=== PATIENT | female | born 1935 | race Caucasian/White ===

== ENCOUNTER 2025-01-13 10:18 | Outpatient (AMB) | payer OTHER, SELFPAY ==
[2025-01-13 10:38] VITALS: BP 143/83; PULSE 78; RESP 19; TEMP 35.7; O2SAT 94; BMI 27.3
--- NOTE | 2025-01-13 10:38 | ORTHONT_ITS ---
Vital signs 01/13/25 10:38 Height 1.63 m Height Method Stated Weight 72.178 kg Weight Measurement Method Standing Scale BMI 27.3 BP 143/83 H Blood Pressure Source Automatic Cuff Blood Pressure Location Left Upper Arm Position Sitting Respiration 19 Pulse 78 Pulse Source Monitor Temp 96.2 F L Temp Source Temporal Artery Scan Pulse Oximetry (%) 94 L Oxygen Delivery Method Room Air Med/Allergies Allergies & Medications Allergies adhesive Allergy (Mild, Verified 01/13/25 10:39) unknown Medication Reconciliation bupropion HCl 300 mg 24 hr tablet, extended release 300 mg PO QAM 06/04/18 [History Confirmed 01/13/25] hydrocodone bitartrate 20 mg tablet,crush resist,extended rel. 24hr ([facility]ys[facility] ER) 20 mg PO QDAY 06/04/18 [History Confirmed 01/13/25] propranolol 10 mg tablet 10 mg PO QID 06/04/18 [History Confirmed 01/13/25] gabapentin 600 mg tablet 600 mg PO BID 01/09/22 [History Confirmed 01/13/25] ropinirole 1 mg tablet 2 mg PO HS 01/09/22 [History Confirmed 01/13/25] hydrocodone 7.5 mg-acetaminophen 325 mg tablet 1 tab PO Q6H PRN Pain #0 tabs 01/15/22 [Rx Confirmed 01/13/25] hydrocodone 7.5 mg-acetaminophen 325 mg tablet 1 tab PO Q6H PRN pain (scale score 7-10) #16 tabs 01/15/22 [Rx Confirmed 01/13/25] Exam Exam Patient is in no acute distress and is cooperative with the examination today. Breathing is nonlabored. Patient has a normal mood and affect. Bilateral extremities were evaluated and demonstrates sensation intact to light touch. Palpable pedal pulses are present. No significant edema is present. Bilateral hips were examined. The patient has no pain with log roll of the hips. Internal rotation to 30 degrees and external rotation to 30 degrees is painless. Negative FADIR. Left knee was examined today. The left knee is in varus alignment. Range of motion from 0-115 degrees. Knee is stable to varus and valgus as well as AP translation with <5mm. Patient has a negative McMurrays. There is no pain with patellofemoral compression and no crepitus noted. The knee is tender to palpation medially. Assessment and Plan Problem List (1) Arthritis of left knee: Status: Acute Plan: Veda is a pleasant 89-year-old female with left knee pain and left knee arthritis. She has a long nail in her left hip for intertrochanteric fracture. We discussed total knee replacement in great detail. I would need to make a plan this to see if it is possible to do the knee replacement without hardware removal. We would not want to remove the ramos if we do not have to. I will see her back after her new x-rays are done. I would also like to make a plan her knee replacement to see if we can do the knee replacement without removing the ramos Advanced Care Planning Discussion Advance care planning discussed with:: patient Office Procedures GNS Level of Care Nursing/Assessment Patient Status: Initial/New Patient Nursing Assessment/Reassesment: Medication Reconciliation, Update PMH in EMR and Vital Signs Coordination of Care: Complex Care and Chronic Disease 1-5, Education Complex Pt/Fam, Consent,records obtained, informed consent, 1 Ins Authorization, Lab and Imaging orders, Results/Orders obtained and Staff clarify orders New Patient Charge New Patient Point Assignment: 1124 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 4 ([id number]) MA Intake Visit Data Collection New Patient or Established: New Patient (never been to [facility]) Reason for Visit:: LEFT KNEE PAIN Seen by Clinical Staff ONLY (RN/MA): No Shop Worker Required: No PCP or OBGYN visit in last 3 months: Yes Hx Now: No Do You Feel Safe at Home: Yes Authorities Contacted: N/A Questionairres Past Medical History Past Medical History Have you ever been diagnosed with any of the following: Neurological Problems Seizures: No Peripheral Neuropathy: Yes Cardiology Problems Coronary Artery Disease: Yes Congestive Heart Failure: No Respiratory Problems Chronic Obstructive Pulmonary Disease (COPD): No Genital/Urinary Problems Renal Disease: No Reproductive Problems Previous Pregnancies: Yes Musculoskeletal Problems Fractures: Yes Endocrine Problems Diabetes Mellitus Type 1: No Diabetes Mellitus Type 2: No Hypothyroidism: Yes Psychologic Problems Anxiety: Yes Other Problems Blood Transfusion Reaction: No Anesthesia Reactions: No Surgical History Coronary Artery Bypass Graft: Yes (DOUBLE) Subjective Visit Visit for: new patient and knee (LEFT) Immunization / Flu Flu Vaccine in the Last 12 Months: Yes Flu Vaccine Exclusion Criteria: Already Received History of Present Illness Chief complaint: Left knee pain Date of injury / onset of symptoms: 10-15 YEARS There is a pleasant 89-year-old female with left knee pain. She severe left knee arthritis. She has tried physical therapy, [place], and multiple injections. She has a history of a left hip fracture done 6 years ago. The knee pain is affecting her quite a bit and she is interested in surgery. She also had a right total knee replacement done [address] Dias in [place] Pain Pain level (0-10): 6 Pain duration: ALL DAY Pain location: anterior Pain quality: aching and other (specify) (UNBLANCED) Pain timing: night, increases with activity and stairs Associated signs & symptoms: weakness Ambulatory data Ambulatory device: none Treatments Number of previous injections: 3 Improvement with previous injections: No Improvement with PT: No Improvement with NSAIDS: no Review of Systems Review of Systems: All systems negative unless otherwise noted in HPI.
== END 2025-01-13 11:00 | disposition home or self-care (01) ==
LOC: HODSRG 10:18
PROVIDERS: PCP Internal Medicine; Referring Provider Internal Medicine; Supervising Provider Orthopaedic Surgery Adult Reconstructive Orthopaedic Surgery; Visit Provider Orthopaedic Surgery Adult Reconstructive Orthopaedic Surgery
DX: M17.12 Unilateral primary osteoarthritis, left knee (principal); M25.562 Pain in left knee; E03.9 Hypothyroidism, unspecified; I25.10 Atherosclerotic heart disease of native coronary artery without angina pectoris; Z96.651 Presence of right artificial knee joint; S72.142D Displaced intertrochanteric fracture of left femur, subsequent encounter for closed fracture with routine healing; X58.XXXD Exposure to other specified factors, subsequent encounter
CPT/HCPCS: 99204; G0463

== ENCOUNTER → 2025-01-18 | Outpatient (CLI) | payer OTHER, SELFPAY ==
--- NOTE | 2025-01-18 15:00 | XR_ITS ---
Examination: Bilateral knees 2 views Right lateral knee left lateral knee 2 views Bilateral axial knees single view Exam date and time: January 18, 2025 1530 hours TECHNIQUE: Bilateral AP knees standing single view, bilateral PA knees standing single view 30 degrees flexion Standing right lateral knee left lateral knee 2 views Bilateral axial knees single view total 5 views Exam date and time: January 18, 2025 1530 hours INDICATIONS: Left knee pain 20 years right knee surgery 13 years ago FINDINGS: Moderate osteopenia Total right knee arthroplasty. Satisfactory alignment No fracture Severe narrowing medial joint space left knee, [id number] Advanced osteoarthritis lateral patellofemoral joints left knee No fracture IMPRESSION: Advanced left knee tricompartment osteoarthritis including severe narrowing medial joint space left knee
--- NOTE | 2025-01-18 15:00 | XR_ITS ---
Examination: Left femur 2 views TECHNIQUE: AP lateral left femur 2 views Exam date and time: January 18, 2025 1542 hours INDICATIONS: Left hip pain 20 years FINDINGS: Healed left hip fracture No acute fracture Advanced left hip osteoarthritis Left hip orthopedic hardware including femoral ramos satisfactory position Advanced osteoarthritis medial patellofemoral joints left knee IMPRESSION: Advanced left hip osteoarthritis Advanced osteoarthritis medial patellofemoral joints left knee
--- NOTE | 2025-01-18 15:00 | XR_ITS ---
Examination: Bilateral hips, AP pelvis, 5 views Technique: AP, lateral views both hips, AP pelvis, 5 views Exam date and time: January 18, 2025 1530 hours INDICATIONS: Left knee pain beginning 20 years ago FINDINGS: Moderate to advanced right hip osteoarthritis Advanced left hip osteoarthritis Old healed left hip fracture No acute hip or pelvic fracture IMPRESSION: Moderate to advanced right hip osteoarthritis Advanced left hip osteoarthritis
== END | disposition home or self-care (01) ==
LOC: CDIM 14:50
PROVIDERS: Referring Provider Orthopaedic Surgery Adult Reconstructive Orthopaedic Surgery; Visit Provider Orthopaedic Surgery Adult Reconstructive Orthopaedic Surgery
DX: M16.0 Bilateral primary osteoarthritis of hip (principal); M17.0 Bilateral primary osteoarthritis of knee; M25.862 Other specified joint disorders, left knee; M25.861 Other specified joint disorders, right knee
CPT/HCPCS: 73523; 73552; 73564

== ENCOUNTER 2025-01-28 10:52 | Outpatient (AMB) | payer OTHER, SELFPAY ==
--- NOTE | 2025-01-28 10:51 | ORTHONT_ITS ---
Med/Allergies Allergies & Medications Allergies adhesive Allergy (Mild, Verified 01/28/25 10:51) unknown Medication Reconciliation bupropion HCl 300 mg 24 hr tablet, extended release 300 mg PO QAM 06/04/18 [History Confirmed 01/28/25] hydrocodone bitartrate 20 mg tablet,crush resist,extended rel. 24hr ([place]ys[facility] ER) 20 mg PO QDAY 06/04/18 [History Confirmed 01/28/25] propranolol 10 mg tablet 10 mg PO QID 06/04/18 [History Confirmed 01/28/25] gabapentin 600 mg tablet 600 mg PO BID 01/09/22 [History Confirmed 01/28/25] ropinirole 1 mg tablet 2 mg PO HS 01/09/22 [History Confirmed 01/28/25] hydrocodone 7.5 mg-acetaminophen 325 mg tablet 1 tab PO Q6H PRN Pain #0 tabs 01/15/22 [Rx Confirmed 01/28/25] hydrocodone 7.5 mg-acetaminophen 325 mg tablet 1 tab PO Q6H PRN pain (scale score 7-10) #16 tabs 01/15/22 [Rx Confirmed 01/28/25] Subjective Visit Visit for: follow up visit, knee and x-rays Immunization / Flu Flu Vaccine in the Last 12 Months: Yes Flu Vaccine Exclusion Criteria: Already Received History of Present Illness Chief complaint: F/U XRAYS TELEMED Veda is an 89-year-old female with severe left knee arthritis. We obtained new x-rays to evaluate the hardware. She does have a femoral ramos her prior intertrochanteric fracture. The knee pain is miserable. Pain Pain level (0-10): 10 Pain duration: ALL DAY Pain location: inside (medial), outside (lateral), anterior and posterior Pain quality: sharp, dull and aching Pain timing: increases with activity Associated signs & symptoms: numbness Ambulatory data Ambulatory device: cane Treatments Improvement with previous injections: Yes Improvement with PT: Yes Improvement with NSAIDS: yes Review of Systems Review of Systems: All systems negative unless otherwise noted in HPI. Assessment and Plan Problem List (1) Arthritis of left knee: Status: Acute Plan: Patient is an 89-year-old female with a left knee pain and a left knee arthritis. We discussed different treatment options. I think we can do a total knee replacement without removing the ramos. This would require a CT scan for both evaluation and for surgery as we cannot do an intramedullary guide. We will see her in person for further discussion. We will need to get a CT scan to see if this is possible without hardware removal Advanced Care Planning Discussion Advance care planning discussed with:: patient Office Procedures GNS Level of Care Nursing/Assessment Patient Status: Established Patient Nursing Assessment/Reassesment: Medication Reconciliation, Update PMH in EMR and Vital Signs Coordination of Care: Complex Care and Chronic Disease 1-5, Education Complex Pt/Fam, Consent,records obtained, informed consent, Results/Orders obtained and Staff clarify orders Established Patient Charge Established Patient Point Assignment: 95 Telehealth Telemed Phone/Video with patient at home & ,[place],UNIVERSITY RELATIONS DIRECTOR: Yes
== END 2025-01-28 11:02 | disposition home or self-care (01) ==
LOC: HODSRG 10:52
PROVIDERS: PCP Internal Medicine; Referring Provider Internal Medicine; Supervising Provider Orthopaedic Surgery Adult Reconstructive Orthopaedic Surgery; Visit Provider Orthopaedic Surgery Adult Reconstructive Orthopaedic Surgery
DX: Z71.2 Person consulting for explanation of examination or test findings (principal); M17.12 Unilateral primary osteoarthritis, left knee; Z96.652 Presence of left artificial knee joint; Z96.7 Presence of other bone and tendon implants
CPT/HCPCS: 99212; G0463

== ENCOUNTER → 2025-02-23 | Outpatient (CLI) | payer OTHER, SELFPAY ==
--- NOTE | 2025-02-23 14:47 | XR_ITS ---
Examination: CT left lower extremity, without contrast. 2-D sagittal reconstructions. 2-D coronal reconstructions. 3-D reconstructions. Date and time of exam:February 23, 2025 1508 hours INDICATIONS: Left knee pain beginning 20 years ago diagnosis primary unilateral osteoarthritis CTDI: vol (mGy):12.8 DLP: (mGycm):951 Technique: Multiple 1.25 mm axial sections of the left lower extremity without intravenous contrast have been obtained. 2-D sagittal and coronal reconstructions have been obtained. 3-D reconstructions have been obtained. Low dose protocols were performed. One or more of the following dose reduction techniques were used; automated exposure control, adjustment of the mA and/or KV according to patient size, use of iterative reconstruction technique. 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
== END | disposition home or self-care (01) ==
PROVIDERS: PCP Orthopaedic Surgery Adult Reconstructive Orthopaedic Surgery; Referring Provider Orthopaedic Surgery Adult Reconstructive Orthopaedic Surgery; Visit Provider Orthopaedic Surgery Adult Reconstructive Orthopaedic Surgery
DX: M17.12 Unilateral primary osteoarthritis, left knee (principal); M16.0 Bilateral primary osteoarthritis of hip
CPT/HCPCS: 73700

== ENCOUNTER 2025-03-01 11:04 | Outpatient (AMB) | payer OTHER, SELFPAY ==
[2025-03-01 11:15] VITALS: BP 144/73; PULSE 66; RESP 18; TEMP 36.1; O2SAT 92; BMI 27.9
--- NOTE | 2025-03-01 11:15 | PD.ORTHCLVIS ---
Vital signs 03/01/25 11:15 Height 1.63 m Height Method Stated Weight 74.162 kg Weight Measurement Method Standing Scale BMI 27.9 BP 144/73 H Blood Pressure Source Automatic Cuff Blood Pressure Location Right Upper Arm Position Sitting Respiration 18 Pulse 66 Pulse Source Monitor Temp 96.9 F Temp Source Temporal Artery Scan Pulse Oximetry (%) 92 L Oxygen Delivery Method Room Air Med/Allergies Allergies & Medications Allergies adhesive Allergy (Mild, Verified 03/01/25 11:16) unknown Medication Reconciliation bupropion HCl 300 mg 24 hr tablet, extended release 300 mg PO QAM 06/04/18 [History Confirmed 03/01/25] hydrocodone bitartrate 20 mg tablet,crush resist,extended rel. 24hr ([facility]ys[facility] ER) 20 mg PO QDAY 06/04/18 [History Confirmed 03/01/25] propranolol 10 mg tablet 10 mg PO QID 06/04/18 [History Confirmed 03/01/25] gabapentin 600 mg tablet 600 mg PO BID 01/09/22 [History Confirmed 03/01/25] ropinirole 1 mg tablet 2 mg PO HS 01/09/22 [History Confirmed 03/01/25] hydrocodone 7.5 mg-acetaminophen 325 mg tablet 1 tab PO Q6H PRN Pain #0 tabs 01/15/22 [Rx Confirmed 03/01/25] hydrocodone 7.5 mg-acetaminophen 325 mg tablet 1 tab PO Q6H PRN pain (scale score 7-10) #16 tabs 01/15/22 [Rx Confirmed 03/01/25] Exam Exam Patient is in no acute distress and is cooperative with the examination today. Breathing is nonlabored. Patient has a normal mood and affect. Bilateral extremities were evaluated and demonstrates sensation intact to light touch. Palpable pedal pulses are present. No significant edema is present. Bilateral hips were examined. The patient has no pain with log roll of the hips. Internal rotation to 30 degrees and external rotation to 30 degrees is painless. Negative FADIR. Left knee was examined today. The left knee is in varus alignment. Range of motion from 0-115 degrees. Knee is stable to varus and valgus as well as AP translation with <5mm. Patient has a negative McMurrays. There is no pain with patellofemoral compression and no crepitus noted. The knee is tender to palpation medially. Left knee x-rays demonstrate complete obliteration of the medial joint space there is a femoral ramos with no distal interlocks Assessment and Plan Problem List (1) Arthritis of left knee: Status: Acute Plan: Patient is an 89-year-old female with a left knee pain and a left knee arthritis. We discussed different treatment options. I think we can do a total knee replacement without removing the ramos. We discussed that she is high at high risk for medical complications at her age as well as infection of fracture. The nature and purpose of the total knee replacement, alternative method(s) of treatment, the material risks involved, and the possibility of complications were fully explained to the patient. The patient does NOT have any of the following contraindications to TKA: - Active infection of the knee joint, OR - Active systemic bacteremia, OR - Active skin infection or open wound at surgical site, OR - Neuropathic arthritis, OR - Severe, rapidly progressive neurological disease, OR - Severe medical condition that makes risks of surgery outweigh the potential benefit The patient was told the most common risks and complications associated with a total knee replacement include, but are not limited to: blood clots in the leg, fatal pulmonary embolism, dislocation of the prosthesis, intraoperative and postoperative fractures of the femur or tibia, infection, failure of the prosthesis or grafting materials, complications from anesthesia, reactions to blood transfusions, postoperative leg length inequality, instability of the knee replacement, nerve damage or injury, vascular injury, delayed wound healing, infection, other injury or even . In addition, there are risks associated with anesthesia given during this operation. Also, the patient was told that after undergoing a total knee replacement there may still be persistent pain or disability. The patient was informed that the success of this operation in part depends upon the mechanical devices which are going to be implanted and that these devices can fail or malfunction, and may need to be repaired or replaced and there are no guarantees as to the longevity of this device or its parts and that it or its parts could fail prematurely. The patient was also notified that during the course of surgery, there may be a need to use bone graft from donors, and that any bone graft used will be carefully screened for communicable diseases, including AIDS, hepatitis, Antonino-Creutzfeldt, or other diseases, but despite the screening procedures, there is a small chance that they could contract one of these diseases. Finally, the patient was asked to follow completely and fully with all advice and recommended treatments, and that recovery and ultimate outcome are affected by their compliance with recommended treatment. We discussed the risks, benefits and treatment alternatives, and the patient is interested in proceeding with surgery. We will try to set this up as expeditiously as possible. Advanced Care Planning Discussion Advance care planning discussed with:: patient Office Procedures GNS Level of Care Nursing/Assessment Patient Status: Established Patient Nursing Assessment/Reassesment: Medication Reconciliation and Update PMH in EMR Coordination of Care: Complex Care and Chronic Disease 1-5, Consent,records obtained, informed consent, Education Simp Pt/Fam, Results/Orders obtained and Staff clarify orders Established Patient Charge Established Patient Point Assignment: 75 Established Patient Point Charge: EP Level 2 (40-75) MA Intake Visit Data Collection New Patient or Established: Established Patient (seen at [facility] within 3 years) Reason for Visit:: LT KNEE CT SCAN RESULT Seen by Clinical Staff ONLY (RN/MA): No Certified Professional Controller Required: No PCP or OBGYN visit in last 3 months: Yes Hx Now: No Do You Feel Safe at Home: Yes Authorities Contacted: N/A Questionairres Past Medical History Past Medical History Have you ever been diagnosed with any of the following: Neurological Problems Seizures: No Peripheral Neuropathy: Yes Cardiology Problems Coronary Artery Disease: Yes Congestive Heart Failure: No Respiratory Problems Chronic Obstructive Pulmonary Disease (COPD): No Smoking: No Smoking Cessation Counseling: No Smoking Exposure: No Genital/Urinary Problems Renal Disease: No Reproductive Problems Previous Pregnancies: Yes Musculoskeletal Problems Fractures: Yes Endocrine Problems Diabetes Mellitus Type 1: No Diabetes Mellitus Type 2: No Hypothyroidism: Yes Psychologic Problems Anxiety: Yes Other Problems Blood Transfusion Reaction: No Anesthesia Reactions: No Surgical History Coronary Artery Bypass Graft: Yes (DOUBLE) Subjective Visit Visit for: follow up visit and knee (LT KNEE ) Immunization / Flu Flu Vaccine in the Last 12 Months: Yes Flu Vaccine Exclusion Criteria: Already Received History of Present Illness Chief complaint: Left knee pain Date of injury / onset of symptoms: 10-15 YEARS There is a pleasant 89-year-old female with left knee pain. She severe left knee arthritis. She has tried physical therapy, [place], and multiple injections. She has a history of a left hip fracture done 6 years ago. The knee pain is affecting her quite a bit and she is interested in surgery. She also had a right total knee replacement done [address] Dias in [place]. Personal History Red flag PMH: none Pain Pain level (0-10): 8 Pain duration: 3-4 YEARS Pain location: anterior Pain quality: burning and tingling Pain timing: night, increases with activity and other (specify) (SITTING ) Associated signs & symptoms: stiffness Ambulatory data Ambulatory device: none Walking distance (minutes): 5 Treatments Number of previous injections: 1 Improvement with previous injections: No Number of Physical Therapy sessions: 1 Improvement with PT: No Improvement with NSAIDS: n/a Review of Systems Review of Systems: All systems negative unless otherwise noted in HPI.
== END 2025-03-01 11:27 | disposition home or self-care (01) ==
LOC: HODSRG 11:04
PROVIDERS: PCP Internal Medicine; Referring Provider Internal Medicine; Supervising Provider Orthopaedic Surgery Adult Reconstructive Orthopaedic Surgery; Visit Provider Orthopaedic Surgery Adult Reconstructive Orthopaedic Surgery
DX: M17.12 Unilateral primary osteoarthritis, left knee (principal); M25.562 Pain in left knee; I25.10 Atherosclerotic heart disease of native coronary artery without angina pectoris
CPT/HCPCS: 99212; G0463

== ENCOUNTER → 2025-03-17 | Outpatient (CLI) | payer OTHER, SELFPAY ==
--- NOTE | 2025-03-17 15:17 | XR_ITS ---
Examination: CT left lower extremity without intravenous contrast, without contrast. 2-D sagittal reconstructions. 2-D coronal reconstructions. 3-D reconstructions. Date and time of exam:March 17, 2025 1552 hours INDICATIONS: Left knee pain 20 years CTDI: vol (mGy):12 DLP: (mGycm):940 Technique: Multiple 1.25 mm axial sections of the left lower extremity without intravenous contrast have been obtained. 2-D sagittal and coronal reconstructions have been obtained. 3-D reconstructions have been obtained. Low dose protocols were performed. One or more of the following dose reduction techniques were used; automated exposure control, adjustment of the mA and/or KV according to patient size, use of iterative reconstruction technique. Findings: Prominent osteopenia Advanced left hip osteoarthritis, [id number] joint narrowing Old healed fracture left hip Advanced left knee tricompartment osteoarthritis with prominent joint space narrowing and subarticular sclerosis osteophyte formation No fracture No patellar dislocation IMPRESSION: Advanced left knee tricompartment osteoarthritis
== END | disposition home or self-care (01) ==
PROVIDERS: PCP Family Medicine; Referring Provider Orthopaedic Surgery Adult Reconstructive Orthopaedic Surgery; Visit Provider Orthopaedic Surgery Adult Reconstructive Orthopaedic Surgery
DX: M17.12 Unilateral primary osteoarthritis, left knee (principal)
CPT/HCPCS: 73700

== ENCOUNTER → 2025-03-22 | Outpatient (CLI) | payer OTHER, SELFPAY ==
[2025-03-22 11:28] LABS: Basophils % (Auto) 1 % (0-2.5); Eosinophils # (Auto) 0.1 Thou/mm3 (0.0-0.5); Eosinophils % (Auto) 3 % (0-10); Hematocrit 36.8 % (36.0-46.0); Hemoglobin 12.3 g/dL (12.0-16.0); Immature Granulocytes % (Auto) 0 % (0-0); Immature Granulocytes Auto 0.01 Thou/mm3 (0.00-0.00); Lymphocytes # (Auto) 1.2 Thou/mm3 (1.0-4.8); Lymphocytes % (Auto) 26 % (10-50); Mean Corpuscular HGB Conc 33.4 g/dl (31.0-37.0); Mean Corpuscular Hemoglobin 31.4 pg (25.0-35.0); Mean Corpuscular Volume 94 fL (80-100); Monocytes # (Auto) 0.4 Thou/mm3 (0.0-0.8); Monocytes % (Auto) 8 % (0-12); Neutrophils # (Auto) 2.9 Thou/mm3 (1.8-7.7); Neutrophils % (Auto) 62 % (37-80); Nucleated Red Blood Cell % 0 /100 WBC (0); Platelet Count 190 Thou/mm3 (140-440); RDW Standard Deviation 46.5 fL (36.4-46.3); Red Blood Count 3.92 Miln/mm3 (4.00-5.20); White Blood Count 4.7 Thou/mm3 (3.6-11.0)
[2025-03-22 11:31] LABS: Partial Thromboplastin Time 24.7 Seconds (22.0-36.0); Prothrombin Time 11.2 Seconds (9.0-12.2)
[2025-03-22 12:16] LABS: Alanine Aminotransferase 9 U/L (10-49); Albumin/Globulin Ratio 1.5 (1.2-2.2); Alkaline Phosphatase 59 U/L (46-116); Anion Gap 3 (7-16); Aspartate Amino Transferase 21 U/L (0-34); BUN/Creatinine Ratio 19 Ratio (12-20); Bilirubin,Total 0.5 mg/dL (0.3-1.2); Blood Urea Nitrogen 23 mg/dL (9-23); Calcium 9.6 mg/dL (8.3-10.6); Calcium (Corrected) 9.6 mg/dL (8.5-10.1); Carbon Dioxide 29.9 mMol/L (20.0-31.0); Cardiac Risk Estimate 3.9 RATIO (3.7-5.6); Chloride 110 mMol/L (98-107); Cholesterol 202 mg/dL (132-200); Creatinine (Component) 1.2 mg/dL (0.6-1.3); Globulin 2.7 gm/dL (2.3-3.5); Glucose 85 mg/dL (74-106); HDL Cholesterol 52 mg/dL (40-60); LDL Cholesterol,Calculated 133 mg/dL (0-130); Osmolality,Calculated 287 (275-295); Potassium 4.4 mMol/L (3.4-5.1); Sodium 143 mMol/L (136-145); Total Protein 6.7 gm/dL (5.7-8.2); Triglycerides 86 mg/dL (30-150); eGFR 44 See Note
== END | disposition home or self-care (01) ==
PROVIDERS: PCP Family Medicine; Referring Provider Registered Nurse; Visit Provider Registered Nurse
DX: Z01.818 Encounter for other preprocedural examination (principal); E78.2 Mixed hyperlipidemia
CPT/HCPCS: 36415; 80053; 80061; 85025; 85610; 85730

== ENCOUNTER 2025-05-17 08:38 | Outpatient (AMB) | payer OTHER, SELFPAY ==
[2025-05-17 09:01] VITALS: BP 102/68; PULSE 63; RESP 18; TEMP 36.4; O2SAT 92; BMI 27.0
--- NOTE | 2025-05-17 09:01 | ORTHONT_ITS ---
Vital signs 05/17/25 09:01 Height 1.63 m Height Method Stated Weight 71.781 kg Weight Measurement Method Standing Scale BMI 27.0 BP 102/68 Blood Pressure Source Automatic Cuff Blood Pressure Location Left Upper Arm Position Sitting Respiration 18 Pulse 63 Pulse Source Monitor Temp 97.5 F Temp Source Temporal Artery Scan Pulse Oximetry (%) 92 L Oxygen Delivery Method Room Air Med/Allergies Allergies & Medications Allergies adhesive Allergy (Mild, Verified 05/17/25 09:02) unknown Medication Reconciliation gabapentin 600 mg tablet 600 mg PO BID 01/09/22 [History Confirmed 05/17/25] alendronate 70 mg tablet 70 mg PO QWEEK 05/17/25 [History Confirmed 05/17/25] aspirin 81 mg tablet 81 mg PO QDAY 05/17/25 [History Confirmed 05/17/25] bupropion HCl 300 mg 24 hr tablet, extended release 300 mg PO QAM 05/17/25 [History Confirmed 05/17/25] diphenhydramine HCl 25 mg tablet (Benadryl Allergy) 25 mg PO QHS PRN 05/17/25 [History Confirmed 05/17/25] hydrocodone 10 mg-acetaminophen 325 mg/15 mL oral solution 15 ml PO BID PRN 05/17/25 [History Confirmed 05/17/25] hydrocodone bitartrate 20 mg tablet,crush resist,extended rel. 24hr (Hysingla ER) 20 mg PO Q24H 05/17/25 [History Confirmed 05/17/25] ibuprofen 200 mg capsule 200 mg PO Q6H PRN 05/17/25 [History Confirmed 05/17/25] inulin 1.7 gram chewable tablet (Fiber Gummies) g PO 05/17/25 [History Confirmed 05/17/25] multivitamin 1 tab PO QAM 05/17/25 [History Confirmed 05/17/25] ropinirole 1 mg tablet 1 mg PO QDAY 05/17/25 [History Confirmed 05/17/25] rosuvastatin 5 mg tablet 5 mg PO QDAY 05/17/25 [History Confirmed 05/17/25] tizanidine 4 mg capsule 4 mg PO QHS PRN 05/17/25 [History Confirmed 05/17/25] tizanidine 4 mg capsule (Zanaflex) 4 mg PO QHS PRN 05/17/25 [History Confirmed 05/17/25] Exam Exam Patient is in no acute distress and is cooperative with the examination today. Breathing is nonlabored. Patient has a normal mood and affect. Bilateral extremities were evaluated and demonstrates sensation intact to light touch. Palpable pedal pulses are present. No significant edema is present. Bilateral hips were examined. The patient has no pain with log roll of the hips. Internal rotation to 30 degrees and external rotation to 30 degrees is painless. Negative FADIR. Left knee was examined today. The left knee is in varus alignment. Range of motion from 0-115 degrees. Knee is stable to varus and valgus as well as AP translation with <5mm. Patient has a negative McMurrays. There is no pain with patellofemoral compression and no crepitus noted. The knee is tender to palpation medially. Left knee x-rays demonstrate complete obliteration of the medial joint space there is a femoral ramos with no distal interlocks Assessment and Plan Problem List (1) Arthritis of left knee: Status: Acute Plan: Patient is an 89-year-old female with a left knee pain and a left knee arthritis. We discussed different treatment options. I think we can do a total knee replacement without removing the ramos. We discussed that she is high at high risk for medical complications at her age as well as infection. I also discussed with her that she is very likely to have continued pain after surgery as she has significant [id number]-[id number] hip arthritis as well with the prior femoral ramos. She is on a lot of pain medications we honestly recommend that she wean down to multiple. She reports that she cannot do this. I discussed with her that there is a high possibility she is can have uncontrolled pain and that I would have her pain management doctor and avoid pain medications as she is on more pain medications that I am comfortable with prescribing. The nature and purpose of the total knee replacement, alternative method(s) of treatment, the material risks involved, and the possibility of complications were fully explained to the patient. The patient does NOT have any of the following contraindications to TKA: - Active infection of the knee joint, OR - Active systemic bacteremia, OR - Active skin infection or open wound at surgical site, OR - Neuropathic arthritis, OR - Severe, rapidly progressive neurological disease, OR - Severe medical condition that makes risks of surgery outweigh the potential benefit The patient was told the most common risks and complications associated with a total knee replacement include, but are not limited to: blood clots in the leg, fatal pulmonary embolism, dislocation of the prosthesis, intraoperative and postoperative fractures of the femur or tibia, infection, failure of the prosthesis or grafting materials, complications from anesthesia, reactions to b lood transfusions, postoperative leg length inequality, instability of the knee replacement, nerve damage or injury, vascular injury, delayed wound healing, infection, other injury or even . In addition, there are risks associated with anesthesia given during this operation. Also, the patient was told that after undergoing a total knee replacement there may still be persistent pain or disability. The patient was informed that the success of this operation in part depends upon the mechanical devices which are going to be implanted and that these devices can fail or malfunction, and may need to be repaired or replaced and there are no guarantees as to the longevity of this device or its parts and that it or its parts could fail prematurely. The patient was also notified that during the course of surgery, there may be a need to use bone graft from donors, and that any bone graft used will be carefully screened for communicable diseases, including AIDS, hepatitis, Antonino-Creutzfeldt, or other diseases, but despite the screening procedures, there is a small chance that they could contract one of these diseases. Finally, the patient was asked to follow completely and fully with all advice and recommended treatments, and that recovery and ultimate outcome are affected by their compliance with recommended treatment. We discussed the risks, benefits and treatment alternatives, and the patient is interested in proceeding with surgery. We will try to set this up as expeditiously as possible. Advanced Care Planning Discussion Advance care planning discussed with:: patient Office Procedures GNS Level of Care Nursing/Assessment Patient Status: Established Patient Nursing Assessment/Reassesment: Medication Reconciliation, Update PMH in EMR and Vital Signs Coordination of Care: Complex Care and Chronic Disease 1-5, Education Complex Pt/Fam, Consent,records obtained, informed consent, Results/Orders obtained and Staff clarify orders Established Patient Charge Established Patient Point Assignment: 95 Established Patient Point Charge: EP Level 3 (80-115) MA Intake Visit Data Collection New Patient or Established: Established Patient (seen at [facility] within 3 years) Reason for Visit:: PRE OP L TKA Seen by Clinical Staff ONLY (RN/MA): No PCP or OBGYN visit in last 3 months: Yes Hx Now: No Do You Feel Safe at Home: Yes Authorities Contacted: N/A Questionairres Past Medical History Past Medical History Have you ever been diagnosed with any of the following: Neurological Problems Seizures: No Peripheral Neuropathy: Yes Cardiology Problems Coronary Artery Disease: Yes Congestive Heart Failure: No Respiratory Problems Chronic Obstructive Pulmonary Disease (COPD): No Smoking: No Smoking Cessation Counseling: No Smoking Exposure: No Genital/Urinary Problems Renal Disease: No Reproductive Problems Previous Pregnancies: Yes Musculoskeletal Problems Fractures: Yes Endocrine Problems Diabetes Mellitus Type 1: No Diabetes Mellitus Type 2: No Hypothyroidism: Yes Psychologic Problems Anxiety: Yes Other Problems Blood Transfusion Reaction: No Anesthesia Reactions: No Surgical History Coronary Artery Bypass Graft: Yes (DOUBLE) Subjective Visit Visit for: follow up visit and knee Immunization / Flu Flu Vaccine in the Last 12 Months: No Flu Vaccine Exclusion Criteria: No Exclusion Criteria History of Present Illness Chief complaint: Left knee pain Date of injury / onset of symptoms: 10-15 YEARS There is a pleasant 89-year-old female with left knee pain. She severe left knee arthritis. She has tried physical therapy, [facility], and multiple injections. She has a history of a left hip fracture done 6 years ago. The knee pain is affecting her quite a bit and she is interested in surgery. She also had a right total knee replacement done [address] Dias in [place]. She is on a very high amount of pain medicine patient's. I discussed with her That her pain management doctor would likely have to take care of this as she is an extremely high dose. I also discussed with her that there is a chance that her pain could be controlled after surgery given the amount of pain medication she is on Personal History Red flag PMH: none Pain Pain level (0-10): 3 Pain duration: ON AND OFF Pain location: inside (medial), outside (lateral), anterior and posterior Pain quality: sharp, dull and aching Pain timing: night, increases with activity and stairs Associated signs & symptoms: stiffness Ambulatory data Ambulatory device: cane Walking distance (minutes): 5 Treatments Number of previous injections: 1 Improvement with previous injections: No Number of Physical Therapy sessions: 1 Improvement with PT: No Improvement with NSAIDS: no Review of Systems Review of Systems: All systems negative unless otherwise noted in HPI.
== END 2025-05-17 09:20 | disposition home or self-care (01) ==
LOC: HODSRG 08:38
PROVIDERS: PCP Family Medicine; Referring Provider Family Medicine; Supervising Provider Orthopaedic Surgery Adult Reconstructive Orthopaedic Surgery; Visit Provider Orthopaedic Surgery Adult Reconstructive Orthopaedic Surgery
DX: M17.12 Unilateral primary osteoarthritis, left knee (principal); M25.562 Pain in left knee; I25.10 Atherosclerotic heart disease of native coronary artery without angina pectoris; E03.9 Hypothyroidism, unspecified; Z95.1 Presence of aortocoronary bypass graft
CPT/HCPCS: 99213; G0463

== ENCOUNTER 2025-06-08 07:05 | Day surgery (SDC) | payer OTHER, SELFPAY ==
--- NOTE | 2025-06-06 06:00 | EKG_ITS ---
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
[2025-06-06 10:15] VITALS: BMI 29.7
[2025-06-06 11:24] LABS: Basophils # (Auto) 0.0 Thou/mm3 (0.0-0.2); Basophils % (Auto) 1 % (0-2.5); Eosinophils # (Auto) 0.1 Thou/mm3 (0.0-0.5); Eosinophils % (Auto) 2 % (0-10); Hematocrit 36.3 % (36.0-46.0); Hemoglobin 11.5 g/dL (12.0-16.0); Immature Granulocytes Auto 0.02 Thou/mm3 (0.00-0.00); Lymphocytes # (Auto) 1.3 Thou/mm3 (1.0-4.8); Lymphocytes % (Auto) 20 % (10-50); Mean Corpuscular HGB Conc 31.7 g/dl (31.0-37.0); Mean Corpuscular Hemoglobin 31.5 pg (25.0-35.0); Mean Corpuscular Volume 100 fL (80-100); Monocytes # (Auto) 0.6 Thou/mm3 (0.0-0.8); Monocytes % (Auto) 10 % (0-12); Neutrophils # (Auto) 4.3 Thou/mm3 (1.8-7.7); Neutrophils % (Auto) 68 % (37-80); Nucleated Red Blood Cell # 0.00 Thou/mm3 (0.00-0.00); Nucleated Red Blood Cell % 0 /100 WBC (0); Platelet Count 190 Thou/mm3 (140-440); RDW Standard Deviation 51.0 fL (36.4-46.3); Red Blood Count 3.65 Miln/mm3 (4.00-5.20); White Blood Count 6.4 Thou/mm3 (3.6-11.0)
[2025-06-06 11:30] LABS: Alanine Aminotransferase 23 U/L (10-49); Albumin, Serum 4.0 gm/dL (3.4-4.8); Albumin/Globulin Ratio 1.5 (1.2-2.2); Alkaline Phosphatase 67 U/L (46-116); Anion Gap 5 (7-16); Aspartate Amino Transferase 35 U/L (0-34); BUN/Creatinine Ratio 15 Ratio (12-20); Bilirubin,Total 0.3 mg/dL (0.3-1.2); Blood Urea Nitrogen 15 mg/dL (9-23); Calcium 8.8 mg/dL (8.3-10.6); Calcium (Corrected) 8.8 mg/dL (8.5-10.1); Carbon Dioxide 31.7 mMol/L (20.0-31.0); Chloride 109 mMol/L (98-107); Creatinine (Component) 1.0 mg/dL (0.6-1.3); Estimated Creatinine Clearance 37.3 mL/min (>60); Globulin 2.6 gm/dL (2.3-3.5); Glucose 108 mg/dL (74-106); Osmolality,Calculated 292 (275-295); Potassium 4.5 mMol/L (3.4-5.1); Sodium 146 mMol/L (136-145); Total Protein 6.6 gm/dL (5.7-8.2); eGFR 55 See Note
[2025-06-06 11:31] LABS: INR 1.0 (0.9-1.3); Partial Thromboplastin Time 25.7 Seconds (22.0-36.0); Prothrombin Time 10.6 Seconds (9.0-12.2)
--- NOTE | 2025-06-06 12:52 | SUR.PREOP ---
Cardiac records reviewed with Dr Zuñiga.
[2025-06-08] VITALS (17 sets, daily range): BP systolic 104–151; BP diastolic 51–72; PULSE 55–90; RESP 12–20; TEMP 36.2–36.9; O2SAT 95–100; BMI 27.6
[2025-06-08] MEDS: ACETAMINOPHEN 325 MG TABLET 650 MG PO (08:00)
[2025-06-08] MEDS: PREGABALIN 75 MG CAPSULE PO (08:01)
[2025-06-08] MEDS: MELOXICAM 7.5 MG TABLET PO (08:01)
--- NOTE | 2025-06-08 09:00 | CHAP ---
Patient was with family members. I gave words of encouragement and a prayer.
--- NOTE | 2025-06-08 12:06 | PD.SUROPNT ---
Date of Procedure 06/08/25 Pre Op Diagnosis left knee osteoarthritis Post Op Diagnosis left knee osteoarthritis Findings full thickness cartilage loss and osteophytes Procedure Description Indication: The patient is a 89 year old who has a long history of left knee pain. X-rays show degenerative arthritis involving the knee. Over the past several years the patient has had increasing pain, progressive limitation in function. He has failed conservative measures including activity modification, physical therapy, injections, anti-inflammatories, and assistive devices. After a lengthy discussion of the risks and benefits, the patient presents now for total knee replacement. The nature and purpose of the total knee replacement, alternative method(s) of treatment, the material risks involved, and the possibility of complications were fully explained to the patient. The patient was told the most common risks and complications associated with a total knee replacement include, but are not limited to blood clots in the leg, fatal pulmonary embolism, dislocation of the prosthesis, intraoperative and postoperative fractures of the femur or tibia, infection, failure of the prosthesis or grafting materials, complications from anesthesia, reactions to blood transfusions, postoperative leg length inequality, instability of the knee replacement, nerve damage or injury, vascular injury, delayed wound healing, infections, other injury or even . In addition, there are risks associated with anesthesia given during this operation, temporary or permanent numbness on the skin lateral to the incision can be a complication unique to total knee surgery, and kneeling can be painful after knee replacement surgery. Also, the patient was told that after undergoing a total knee replacement there may still be pain or disability. We discussed with the patient that we will be using a robot-assisted technology. We discussed that there is a possibility of converting to manual instrumentation. The patient was informed that the success of this operation in part depends upon the mechanical devices which are going to be implanted and that these devices can fail or malfunction, and may need to be repaired or replaced and there are no guarantees as to the longevity of this device or its part and that it or its parts could fail prematurely. Finally, the patient was asked to follow completely and fully with all advice and recommended treatments, and that recovery and ultimate outcome are affected by their compliance with recommended treatment. Surgical technique: Patient was marked and consented in the pre-operative area. The patient was brought to the operating room and placed on the operating table in a supine position. Prior to positioning, a timeout procedure was performed between the surgeon, the anesthesiologist, and the nursing staff where the patient and the operative side were identified and confirmed. After adequate general anesthetic was obtained, the left lower extremity was prepped and draped in the usual sterile fashion. A weight based dose of Cefazolin were administered within 1 hour prior to incision. The robot was preregistered and calirated before the incision. The extremity was exsanguinated with an esmarch badge and tourniquet inflated to 250mmHg. A midline incision was made. A median parapatellar arthrotomy was made. The patella was subluxed laterally. A medial release was performed to expose the medial tibia. His femoral and tibial pins were placed through an intra incisional manner for both cases. Every effort was made to ensure that the distalmost aspect of the pin was hung in the second cortex. The arrays were then tightened several times to ensure that it was fixed for the remainder of the case. Both femoral and tibial checkpoints were then placed. We then went through the registration process of the bone. We then assessed the knee deformity and attempted to correct it. We also used the robot to aid in judging laxity in both extension and flexion. Final based on laxity and alignment we changed the preoperative assessment to obtain proper proper implant positioning and to correct deformity. Attention was then placed to the tibia. We made a tibial cut using the robot ensuring that both the MCL and the patella tendon were protected with retractors. We then went to the femur and made the posterior cut followed by the anterior cut and the anterior chamfer. The bone was then removed and we made a distal femur cut and a posterior chamfer cut. We verified all cuts. A trial reduction was performed with a size 5 femoral component and a size 5 keeled tibial component. The patella was cut and sized to a 33. The patella tracked centrally, and no lateral retinacular release was necessary. The trial implants were removed. The arrays, pins, and checkpoints were all removed. We performed a verification that all pins were removed. The cut bone surfaces were lavaged. A size 5 left femoral component, a size 5 keeled tibial component, and a size [33] patella were cemented into position with palacos. A triAl liner was placed The knee was felt to be well balanced in the sagittal and coronal plane. once the cement dried the final 5x10 mm cruciate-substituting articular insert was impacted into the tibial tray. The knee was brought out to full extension, flexed up to 120 degrees. It was stable to varus and valgus stress and appropriately balanced in flexion and extension. The wounds were copiously irrigated following deflation of tourniquet. The medial retinaculum was reapproximated with #1 vicryl and quill. The subcutaneous tissues were closed with 0 and 2-0 interrupted Vicryl. The skin was closed with 3-0 Monofilament V loc suture. A sterile dressing was applied. The patient was transferred to a bed and brought to recovery in stable condition. The patient tolerated the procedure well. There were no intraoperative complications. Sponge and needle counts were correct times 2. As the attending surgeon, I attest I was present and performed the entire operation. Grafts/Implants Size 5 CR Femur Size 5 Tibia 10mm poly CS 33mm patella 2 bags palacos Anesthesia spinal Implants buddy Pathology / specimen None Pathology comment: none Estimated Blood Loss 150 Condition Stable Disposition same day Surgeon Martin Siu MD Surgical Staff Operation Date: 06/08/25 10:30 Case Staff CUSTOMER ACCOUNT ADMINISTRATOR: Kareem Clifton RNmanager quality: Erika Jones
--- NOTE | 2025-06-08 12:10 | XR_ITS ---
Examination: AP lateral knee 2 views TECHNIQUE: AP portable supine lateral left knee 2 views Date and time: June 08, 2025 1233 hours INDICATIONS: Status post left knee arthroplasty FINDINGS: Total left knee arthroplasty. Satisfactory alignment No fracture IMPRESSION: Total left knee arthroplasty with satisfactory alignment
--- NOTE | 2025-06-08 12:17 | SUR.PHASEI ---
1217 Patient arrived to recovery resting comfortably in [facility] on oxygen 6L via oxy mask, drowsy and talking with staff, breathing unlabored, vital signs stable, denies pain, dressing intact to left knee; prieno, telfa, abd, webril, sowmya wrap, no bleeding noted, bilateral dorsalis pedis pulses present when palpated, patient has good circulation to left lower extremity; skin color normal for patient and warm to touch, post spinal anesthesia assessment patient has dermatome sensation at L4-mid lower left extremity, report received from Kareem CALDERON and Katerin WAGONER
--- NOTE | 2025-06-08 12:32 | SUR.PHASEI ---
1232 verbal order read-back received from Kareem CALDERON for Tylenol 1000mg via IV for pain to be given at 1300 and Oxycodone IR 5mg oral tab for pain scale 4-6 as needed for pain, will enter order into EMR and administer per hermes garcia
--- NOTE | 2025-06-08 12:42 | SUR.PHASEI ---
1242 XRAY complete per MD order
--- NOTE | 2025-06-08 12:47 | SUR.PHASEI ---
1247 Post spinal anesthesia assessment complete patient has dermatome sensation at S2 perineum
[2025-06-08] MEDS: ACETAMINOPHEN IVPB 1,000 MG/100 ML VIAL 250 MG IV (13:04)
--- NOTE | 2025-06-08 13:05 | SUR.PHASEI ---
9970 patient ate a jello, tolerated well
[2025-06-08] MEDS: oxyCODONE HCL 5 MG IR TAB PO (13:21)
--- NOTE | 2025-06-08 13:40 | SUR.PHASEII ---
1340 Patients family at bedside
--- NOTE | 2025-06-08 13:55 | SUR.PHASEII ---
1356 Dr. Siu at bedside talking with patient and her family
--- NOTE | 2025-06-08 15:17 | SUR.PHASEII ---
1517 patient cleared by physical therapy to proceed with discharge, however patient unable to void in restroom during PT session, patient denies pain to bladder and states she unable to void at this time, will continue to give patient fluids and patient requesting a meal
--- NOTE | 2025-06-08 16:00 | SUR.PHASEII ---
1600 patient completed her meal tray, a sandwich, fruit, salad, chips and drank a bottle of water and 7up
--- NOTE | 2025-06-08 16:20 | SUR.PHASEII ---
[address] of place urine soiled bed, purewick positioned correctly voided 200ml in suction canister
--- NOTE | 2025-06-08 16:30 | SUR.PHASEII ---
1630 Patient meets discharge criteria from recovery, awake and alert, breathing unlabored, vital signs stable, denies pain, dressing intact; no bleeding noted, denies nausea, voided with purewick prior to discharge, assisted with dressing into her clothing by this typewriter mechanic, discharge instructions given to patient, patients significant other and daughter, daughter signed discharge instructions. Patient given all her belongings prior to discharge, transported via wheelchair and left in a private vehicle.
== END 2025-06-08 16:30 | disposition home or self-care (01) ==
PROVIDERS: Anesthesiology; PCP Family Medicine; Referring Provider Orthopaedic Surgery Adult Reconstructive Orthopaedic Surgery; Visit Provider Orthopaedic Surgery Adult Reconstructive Orthopaedic Surgery
PROC: (CPT 27447; principal; 2025-06-08 10:30)
DX: M17.12 Unilateral primary osteoarthritis, left knee (principal); M25.762 Osteophyte, left knee; Z01.810 Encounter for preprocedural cardiovascular examination; I25.10 Atherosclerotic heart disease of native coronary artery without angina pectoris; G62.9 Polyneuropathy, unspecified; E03.9 Hypothyroidism, unspecified; Z95.1 Presence of aortocoronary bypass graft; Z96.651 Presence of right artificial knee joint; Z79.82 Long term (current) use of aspirin; Z79.899 Other long term (current) drug therapy
CPT/HCPCS: 27447; 20985; 36415; 73560; 80053; 85025; 85610; 85730; 93005; 97162; A4217; C1713; C1776; J0131; J1100; J2250; J2405; J2704; J3010; J3490; J7999; A4648; A4649; A9270

== ENCOUNTER 2025-06-23 08:33 | Outpatient (AMB) | payer OTHER, SELFPAY ==
--- NOTE | 2025-06-23 08:37 | PD.ORTHCLVIS ---
Vital signs 06/23/25 08:43 Height 1.57 m Height Method Measured Weight 72.348 kg Weight Measurement Method Standing Scale BMI 29.3 BP 120/64 Blood Pressure Source Automatic Cuff Blood Pressure Location Left Upper Arm Position Sitting Respiration 18 Pulse 82 Pulse Source Monitor Temp 97.4 F Temp Source Temporal Artery Scan Pulse Oximetry (%) 94 L Oxygen Delivery Method Room Air Med/Allergies Allergies & Medications Allergies adhesive Allergy (Mild, Verified 06/23/25 08:44) unknown Medication Reconciliation gabapentin 600 mg tablet 600 mg PO QAM 01/09/22 [History Confirmed 06/23/25] aspirin 81 mg tablet 81 mg PO QDAY 05/17/25 [History Confirmed 06/23/25] Held on 06/08/25. Instructions: Resume on 07/07/25. bupropion HCl 300 mg 24 hr tablet, extended release 300 mg PO QAM 05/17/25 [History Confirmed 06/23/25] hydrocodone bitartrate 20 mg tablet,crush resist,extended rel. 24hr (Hysingla ER) 20 mg PO Q24H 05/17/25 [History Confirmed 06/23/25] ropinirole 1 mg tablet 1 mg PO QDAY 05/17/25 [History Confirmed 06/23/25] rosuvastatin 5 mg tablet 5 mg PO MWF 05/17/25 [History Confirmed 06/23/25] [id number] oil-omega 3-vit E 50 mg-550 mg-300 mg-30 unit capsule 1 cap PO DAILY 06/06/25 [History Confirmed 06/23/25] gabapentin 600 mg tablet 900 mg PO HS 06/06/25 [History Confirmed 06/23/25] multivitamin (Daily Multi-Vitamin tablet) 1 tab PO QAM 06/06/25 [History Confirmed 06/23/25] ropinirole 2 mg tablet 2 mg PO HS 06/06/25 [History Confirmed 06/23/25] acetaminophen 500 mg tablet (Acetaminophen Extra Strength) 1,000 mg (2 x 500 mg) PO Q6H PRN pain #90 tabs 06/08/25 [Rx Confirmed 06/23/25] aspirin 81 mg tablet,delayed release 81 mg PO BID #60 tabs 06/08/25 [Rx Confirmed 06/23/25] doxycycline hyclate 100 mg tablet 100 mg PO BID #14 tabs 06/08/25 [Rx Confirmed 06/23/25] gabapentin 300 mg capsule 300 mg PO .qhs #30 caps 06/08/25 [Rx Confirmed 06/23/25] sennosides 8.6 mg-docusate sodium 50 mg tablet (Senna-S) 1 tab-cap PO QDAY #30 tabs 06/08/25 [Rx Confirmed 06/23/25] Assessment and Plan Advanced Care Planning Discussion Advance care planning discussed with:: patient Office Procedures GNS Level of Care Nursing/Assessment Patient Status: Established Patient Nursing Assessment/Reassesment: Medication Reconciliation, Update PMH in EMR and Vital Signs Coordination of Care: Complex Care and Chronic Disease 1-5, Education Complex Pt/Fam, Consent,records obtained, informed consent, Lab and Imaging orders, Results/Orders obtained and Staff clarify orders Established Patient Charge Established Patient Point Assignment: 110 Established Patient Point Charge: EP Level 3 (80-115) [place] Intake Visit Data Collection New Patient or Established: Established Patient (seen at [facility] within 3 years) Reason for Visit:: 2 WEEK POST OP LEFT TKA Seen by Clinical Staff ONLY (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 PCP or OBGYN visit in last 3 months: Yes Hx Now: No Do You Feel Safe at Home: Yes Authorities Contacted: N/A Questionairres Past Medical History Past Medical History Have you ever been diagnosed with any of the following: Neurological Problems Seizures: No Peripheral Neuropathy: Yes Cardiology Problems Coronary Artery Disease: Yes Hypercholesterolemia: Yes Congestive Heart Failure: No Respiratory Problems Chronic Obstructive Pulmonary Disease (COPD): No Smoking: No Smoking Cessation Counseling: No Smoking Exposure: No Stomache/Intestinal Problems Hepatitis: No Genital/Urinary Problems Renal Disease: No Reproductive Problems Pelvic Inflammatory Disease: Yes Previous Pregnancies: Yes Musculoskeletal Problems Arthritis: Yes Fractures: Yes (Ribs) Head,Eye,Nose,Throat Problems Deafness: Yes ([place]) Endocrine Problems Diabetes Mellitus Type 1: No Diabetes Mellitus Type 2: No Hypothyroidism: No Psychologic Problems Anxiety: Yes Other Problems Hospitalization: No Shingles: Yes Blood Transfusions: Yes Blood Transfusion Reaction: No Anesthesia Reactions: No Chicken Pox: Yes Measles: Yes Cancer: No Surgical History Coronary Artery Bypass Graft: Yes (DOUBLE) Hysterectomy: Yes Subjective Visit Visit for: follow up visit, post op #2 and knee Immunization / Flu Flu Vaccine in the Last 12 Months: No Flu Vaccine Exclusion Criteria: No Exclusion Criteria History of Present Illness Chief complaint: 2 WEEK POST OP LEFT TKA Personal History BMI Counceling provided: No Pain Pain level (0-10): 6 Pain location: anterior Pain quality: sharp Pain timing: increases with activity Associated signs & symptoms: none Ambulatory data Ambulatory device: walker Treatments Improvement with previous injections: No Improvement with PT: No Improvement with NSAIDS: no Review of Systems Review of Systems: All systems negative unless otherwise noted in HPI.
[2025-06-23 08:43] VITALS: BP 120/64; PULSE 82; RESP 18; TEMP 36.3; O2SAT 94; BMI 29.3
== END 2025-06-23 09:03 | disposition home or self-care (01) ==
PROVIDERS: PCP Family Medicine; Referring Provider Family Medicine; Supervising Provider Orthopaedic Surgery Adult Reconstructive Orthopaedic Surgery; Visit Provider Orthopaedic Surgery Adult Reconstructive Orthopaedic Surgery
DX: Z96.652 Presence of left artificial knee joint (principal); E78.00 Pure hypercholesterolemia, unspecified; I25.10 Atherosclerotic heart disease of native coronary artery without angina pectoris; Z95.1 Presence of aortocoronary bypass graft
CPT/HCPCS: 99213; G0463

== ENCOUNTER 2025-08-16 14:40 | Outpatient (AMB) | payer OTHER, SELFPAY ==
--- NOTE | 2025-08-16 15:04 | PD.ORTHCLVIS ---
Vital signs 08/16/25 15:13 Height 1.57 m Height Method Stated Weight 73.68 kg Weight Measurement Method Standing Scale BMI 29.9 BP 106/63 Blood Pressure Source Automatic Cuff Blood Pressure Location Left Upper Arm Position Sitting Respiration 16 Pulse 67 Pulse Source Monitor Temp 97.3 F Temp Source Temporal Artery Scan Pulse Oximetry (%) 87 L Oxygen Delivery Method Room Air Med/Allergies Allergies & Medications Allergies adhesive Allergy (Mild, Verified 08/16/25 15:14) unknown Medication Reconciliation gabapentin 600 mg tablet 600 mg PO QAM 01/09/22 [History Confirmed 08/16/25] aspirin 81 mg tablet 81 mg PO QDAY 05/17/25 [History Confirmed 08/16/25] Held on 06/08/25. Instructions: Resume on 07/07/25. bupropion HCl 300 mg 24 hr tablet, extended release 300 mg PO QAM 05/17/25 [History Confirmed 08/16/25] hydrocodone bitartrate 20 mg tablet,crush resist,extended rel. 24hr (Hysingla ER) 20 mg PO Q24H 05/17/25 [History Confirmed 08/16/25] ropinirole 1 mg tablet 1 mg PO QDAY 05/17/25 [History Confirmed 08/16/25] rosuvastatin 5 mg tablet 5 mg PO MWF 05/17/25 [History Confirmed 08/16/25] [id number] oil-omega 3-vit E 50 mg-550 mg-300 mg-30 unit capsule 1 cap PO DAILY 06/06/25 [History Confirmed 08/16/25] gabapentin 600 mg tablet 900 mg PO HS 06/06/25 [History Confirmed 08/16/25] multivitamin (Daily Multi-Vitamin tablet) 1 tab PO QAM 06/06/25 [History Confirmed 08/16/25] ropinirole 2 mg tablet 2 mg PO HS 06/06/25 [History Confirmed 08/16/25] acetaminophen 500 mg tablet (Acetaminophen Extra Strength) 1,000 mg (2 x 500 mg) PO Q6H PRN pain #90 tabs 06/08/25 [Rx Confirmed 08/16/25] aspirin 81 mg tablet,delayed release 81 mg PO BID #60 tabs 06/08/25 [Rx Confirmed 08/16/25] doxycycline hyclate 100 mg tablet 100 mg PO BID #14 tabs 06/08/25 [Rx Confirmed 08/16/25] gabapentin 300 mg capsule 300 mg PO .qhs #30 caps 06/08/25 [Rx Confirmed 08/16/25] sennosides 8.6 mg-docusate sodium 50 mg tablet (Senna-S) 1 tab-cap PO QDAY #30 tabs 06/08/25 [Rx Confirmed 08/16/25] Exam Exam Patient is in no acute distress and is cooperative with the examination today. Breathing is nonlabored. Patient has a normal mood and affect. Bilateral extremities were evaluated and demonstrates sensation intact to light touch. Palpable pedal pulses are present. No significant edema is present. Bilateral hips were examined. The patient has no pain with log roll of the hips. Internal rotation to 30 degrees and external rotation to 30 degrees is painless. Negative FADIR. Left knee was examined today. The left knee is in varus alignment. Range of motion from 0-115 degrees. Knee is stable to varus and valgus as well as AP translation with <5mm. Patient has a negative McMurrays. There is no pain with patellofemoral compression and no crepitus noted. The knee is tender to palpation medially. Left hip incision is clean dry intact. Left knee replacement is clean dry intact Left knee x-rays demonstrate complete obliteration of the medial joint space there is a femoral ramos with no distal interlocks Assessment and Plan Problem List (1) Arthritis of left knee: Status: Acute Plan: Patient is an 89-year-old female status post left total knee replacement. 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 We will continue with nonoperative treatment. We will order a cortisone injection of her left hip to see how much of the pain from her back versus her hip. A lot of her pain is primarily localized to the buttocks (2) Closed intertrochanteric fracture of left hip: Status: Acute Advanced Care Planning Discussion Advance care planning discussed with:: patient Office Procedures GNS Level of Care Nursing/Assessment Patient Status: Established Patient Nursing Assessment/Reassesment: Medication Reconciliation, Update PMH in EMR and Vital Signs Coordination of Care: Complex Care and Chronic Disease 1-5, Education Complex Pt/Fam, Consent,records obtained, informed consent, Results/Orders obtained and Staff clarify orders Established Patient Charge Established Patient Point Assignment: 95 Established Patient Point Charge: EP Level 3 (80-115) MA Intake Visit Data Collection New Patient or Established: Established Patient (seen at 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 PCP or OBGYN visit in last 3 months: Yes Hx Now: No Do You Feel Safe at Home: Yes Authorities Contacted: N/A Questionairres Past Medical History Past Medical History Have you ever been diagnosed with any of the following: Neurological Problems Seizures: No Peripheral Neuropathy: Yes Cardiology Problems Coronary Artery Disease: Yes Hypercholesterolemia: Yes Congestive Heart Failure: No Respiratory Problems Chronic Obstructive Pulmonary Disease (COPD): No Smoking: No Smoking Cessation Counseling: No Smoking Exposure: No Stomache/Intestinal Problems Hepatitis: No Genital/Urinary Problems Renal Disease: No Reproductive Problems Pelvic Inflammatory Disease: Yes Previous Pregnancies: Yes Musculoskeletal Problems Arthritis: Yes Fractures: Yes (Ribs) Head,Eye,Nose,Throat Problems Deafness: Yes ([place]) Endocrine Problems Diabetes Mellitus Type 1: No Diabetes Mellitus Type 2: No Hypothyroidism: No Psychologic Problems Anxiety: Yes Other Problems Hospitalization: No Shingles: Yes Blood Transfusions: Yes Blood Transfusion Reaction: No Anesthesia Reactions: No Chicken Pox: Yes Measles: Yes Cancer: No Surgical History Coronary Artery Bypass Graft: Yes (DOUBLE) Hysterectomy: Yes Subjective Visit Visit for: follow up visit, post op #3 and knee Immunization / Flu Flu Vaccine in the Last 12 Months: No Flu Vaccine Exclusion Criteria: No Exclusion Criteria History of Present Illness Chief complaint: 6 WEEK POST OP LEFT TKA That he is pleasant 89-year-old female with a left total knee replacement is doing well. She is postoperative from this and is very happy. She is working with physical therapy Personal History BMI Counceling provided: No Pain Pain level (0-10): 4 Pain location: anterior Pain quality: sharp Pain timing: increases with activity Associated signs & symptoms: none Ambulatory data Ambulatory device: walker Treatments Improvement with previous injections: No Improvement with PT: No Improvement with NSAIDS: no Review of Systems Review of Systems: All systems negative unless otherwise noted in HPI.
[2025-08-16 15:13] VITALS: BP 106/63; PULSE 67; RESP 16; TEMP 36.3; O2SAT 87; BMI 29.9
== END 2025-08-16 15:20 | disposition home or self-care (01) ==
LOC: HODSRG 14:40
PROVIDERS: PCP Family Medicine; Referring Provider Family Medicine; Supervising Provider Orthopaedic Surgery Adult Reconstructive Orthopaedic Surgery; Visit Provider Orthopaedic Surgery Adult Reconstructive Orthopaedic Surgery
DX: M16.12 Unilateral primary osteoarthritis, left hip (principal); Z96.652 Presence of left artificial knee joint; S72.142A Displaced intertrochanteric fracture of left femur, initial encounter for closed fracture; X58.XXXA Exposure to other specified factors, initial encounter; I25.10 Atherosclerotic heart disease of native coronary artery without angina pectoris; E78.00 Pure hypercholesterolemia, unspecified; Z95.1 Presence of aortocoronary bypass graft
CPT/HCPCS: 99213; G0463

== ENCOUNTER → 2025-09-12 | Outpatient (CLI) | payer OTHER, SELFPAY ==
--- NOTE | 2025-09-12 13:00 | XR_ITS ---
Examination: Steroid injection left hip with imaging guidance Fluoroscopy . Exam date and time: 08/13/2025, 4:50 p.m. Fluoroscopy time: 1.2 Dose: 14.75 mGy Informed consent provided. Technique: A timeout was completed verifying correct patient, procedure, site, positioning. The patient was placed in supine position appropriate for the steroid injection The patient's site was prepped and draped in sterile fashion 5 cc 1% lidocaine administered locally for anesthesia. Sterile drape applied, maximum barrier sterile technique. Utilizing fluoroscopic guidance, 23-gauge needle placed in the left femoral head joint capsule 1 cc Triamcinalone in 5 cc 0.25% Marcaine introduced into the left femoral head joint capsule The patient was in satisfactory and stable condition on completion of the procedure Attending radiologist was present for the entire procedure Estimated blood loss 0 cc. Impression: Successful left hip steroid injection with imaging guidance .
== END | disposition home or self-care (01) ==
PROVIDERS: PCP Family Medicine; Referring Provider Orthopaedic Surgery Adult Reconstructive Orthopaedic Surgery; Visit Provider Radiology Diagnostic Radiology
DX: M16.12 Unilateral primary osteoarthritis, left hip (principal)
CPT/HCPCS: 20610; 77002; Q9967

== ENCOUNTER 2025-10-13 08:00 | Outpatient (AMB) | payer OTHER, SELFPAY ==
--- NOTE | 2025-10-13 08:07 | ORTHONT_ITS ---
Vital signs 10/13/25 08:08 Height 1.57 m Height Method Measured Weight 73.057 kg Weight Measurement Method Standing Scale BMI 29.6 BP 103/61 Blood Pressure Source Automatic Cuff Blood Pressure Location Left Upper Arm Position Sitting Respiration 18 Pulse 68 Pulse Source Monitor Temp 97.3 F Temp Source Temporal Artery Scan Pulse Oximetry (%) 94 L Oxygen Delivery Method Room Air Med/Allergies Allergies & Medications Allergies adhesive Allergy (Mild, Verified 10/13/25 08:09) unknown Medication Reconciliation gabapentin 600 mg tablet 600 mg PO QAM 01/09/22 [History Confirmed 10/13/25] aspirin 81 mg tablet 81 mg PO QDAY 05/17/25 [History Confirmed 10/13/25] Held on 06/08/25. Instructions: Resume on 07/07/25. bupropion HCl 300 mg 24 hr tablet, extended release 300 mg PO QAM 05/17/25 [History Confirmed 10/13/25] hydrocodone bitartrate 20 mg tablet,crush resist,extended rel. 24hr (Hysingla ER) 20 mg PO Q24H 05/17/25 [History Confirmed 10/13/25] ropinirole 1 mg tablet 1 mg PO QDAY 05/17/25 [History Confirmed 10/13/25] rosuvastatin 5 mg tablet 5 mg PO MWF 05/17/25 [History Confirmed 10/13/25] [id number] oil-omega 3-vit E 50 mg-550 mg-300 mg-30 unit capsule 1 cap PO DAILY 06/06/25 [History Confirmed 10/13/25] gabapentin 600 mg tablet 900 mg PO HS 06/06/25 [History Confirmed 10/13/25] multivitamin (Daily Multi-Vitamin tablet) 1 tab PO QAM 06/06/25 [History Confirmed 10/13/25] ropinirole 2 mg tablet 2 mg PO HS 06/06/25 [History Confirmed 10/13/25] acetaminophen 500 mg tablet (Acetaminophen Extra Strength) 1,000 mg (2 x 500 mg) PO Q6H PRN pain #90 tabs 06/08/25 [Rx Confirmed 10/13/25] aspirin 81 mg tablet,delayed release 81 mg PO BID #60 tabs 06/08/25 [Rx Confirmed 10/13/25] doxycycline hyclate 100 mg tablet 100 mg PO BID #14 tabs 06/08/25 [Rx Confirmed 10/13/25] gabapentin 300 mg capsule 300 mg PO .qhs #30 caps 06/08/25 [Rx Confirmed 10/13/25] sennosides 8.6 mg-docusate sodium 50 mg tablet (Senna-S) 1 tab-cap PO QDAY #30 tabs 06/08/25 [Rx Confirmed 10/13/25] Exam Exam Patient is in no acute distress and is cooperative with the examination today. Breathing is nonlabored. Patient has a normal mood and affect. Bilateral extremities were evaluated and demonstrates sensation intact to light touch. Palpable pedal pulses are present. No significant edema is present. Bilateral hips were examined. The patient has no pain with log roll of the hips. Internal rotation to 30 degrees and external rotation to 30 degrees is painless. Negative FADIR. Left knee was examined today. The left knee is in varus alignment. Range of motion from 0-115 degrees. Knee is stable to varus and valgus as well as AP translation with <5mm. Patient has a negative McMurrays. There is no pain with patellofemoral compression and no crepitus noted. The knee is tender to palpation medially. Left hip incision is clean dry intact. Left knee replacement is clean dry intact Left knee x-rays demonstrate complete obliteration of the medial joint space there is a femoral ramos with no distal interlocks Assessment and Plan Problem List (1) Arthritis of left knee: Status: Acute Plan: Patient is an 89-year-old female status post left total knee replacement. 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 We will continue with nonoperative treatment for now. She did well from the cortisone injection in her hip and she is considering a total hip arthroplasty for the left. (2) Closed intertrochanteric fracture of left hip: Status: Acute Advanced Care Planning Discussion Advance care planning discussed with:: patient Office Procedures GNS Level of Care Nursing/Assessment Patient Status: Established Patient Nursing Assessment/Reassesment: Medication Reconciliation, Update PMH in EMR and Vital Signs Coordination of Care: Complex Care and Chronic Disease 1-5, Education Complex Pt/Fam, Consent,records obtained, informed consent, Results/Orders obtained and Staff clarify orders Established Patient Charge Established Patient Point Assignment: 95 Established Patient Point Charge: EP Level 3 (80-115) [place] Intake Visit Data Collection New Patient or Established: Established Patient (seen at [facility] within 3 years) Reason for Visit:: F/U LEFT HIP GUIDED INJECTION Seen by Clinical Staff ONLY (RN/MA): 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 PCP or OBGYN visit in last 3 months: Yes Hx Now: No Do You Feel Safe at Home: Yes Authorities Contacted: N/A Questionairres Past Medical History Past Medical History Have you ever been diagnosed with any of the following: Neurological Problems Seizures: No Peripheral Neuropathy: Yes Cardiology Problems Coronary Artery Disease: Yes Hypercholesterolemia: Yes Congestive Heart Failure: No Respiratory Problems Chronic Obstructive Pulmonary Disease (COPD): No Smoking: No Smoking Cessation Counseling: No Smoking Exposure: No Stomache/Intestinal Problems Hepatitis: No Genital/Urinary Problems Renal Disease: No Reproductive Problems Pelvic Inflammatory Disease: Yes Previous Pregnancies: Yes Musculoskeletal Problems Arthritis: Yes Fractures: Yes (Ribs) Head,Eye,Nose,Throat Problems Deafness: Yes ([place]) Endocrine Problems Diabetes Mellitus Type 1: No Diabetes Mellitus Type 2: No Hypothyroidism: No Psychologic Problems Anxiety: Yes Other Problems Hospitalization: No Shingles: Yes Blood Transfusions: Yes Blood Transfusion Reaction: No Anesthesia Reactions: No Chicken Pox: Yes Measles: Yes Cancer: No Surgical History Coronary Artery Bypass Graft: Yes (DOUBLE) Hysterectomy: Yes Subjective Visit Visit for: follow up visit and knee Immunization / Flu Flu Vaccine in the Last 12 Months: No Flu Vaccine Exclusion Criteria: No Exclusion Criteria History of Present Illness Chief complaint: F/U LEFT HIP GUIDED INJECTIONS That he is pleasant 89-year-old female with a left total knee replacement is doing well. She is postoperative from this and is very happy. She is done with physical therapy Personal History Red flag PMH: none BMI Counceling provided: No Pain Pain level (0-10): 4 Pain location: anterior Pain quality: sharp Pain timing: increases with activity Associated signs & symptoms: none Ambulatory data Ambulatory device: walker Treatments Improvement with previous injections: No Improvement with PT: No Improvement with NSAIDS: no Review of Systems Review of Systems: All systems negative unless otherwise noted in HPI.
[2025-10-13 08:08] VITALS: BP 103/61; PULSE 68; RESP 18; TEMP 36.3; O2SAT 94; BMI 29.6
== END 2025-10-13 08:28 | disposition home or self-care (01) ==
LOC: HODSRG 08:00
PROVIDERS: PCP Family Medicine; Referring Provider Family Medicine; Supervising Provider Orthopaedic Surgery Adult Reconstructive Orthopaedic Surgery; Visit Provider Orthopaedic Surgery Adult Reconstructive Orthopaedic Surgery
DX: Z47.1 Aftercare following joint replacement surgery (principal); Z96.652 Presence of left artificial knee joint; M12.552 Traumatic arthropathy, left hip; T14.8XXS Other injury of unspecified body region, sequela; X58.XXXS Exposure to other specified factors, sequela
CPT/HCPCS: 99213; G0463